=== PATIENT | female | born 1955 | race Caucasian/White ===

== ENCOUNTER 2018-02-18 08:41 | Day surgery (SDC) | payer MEDICAID ==
--- NOTE | 2018-02-18 10:06 | PCM.SURG1 ---
Surgeon's Initial Post Op Note - Surgeon's Notes Surgeon: Rj Faulkner MD Pet Handler: NONE Type of Anesthesia: Local Pre-Operative Diagnosis: Left thyroid nodule Operative Findings: 1.8 cm left thyroid nodule Post-Operative Diagnosis: Left thyroid nodule Operation Performed: US guided FNA Specimen/Specimens Removed: 25 g FNA x 5 passes Estimated Blood Loss: EBL {In ML}: 1 Blood Products Given: N/A Drains Used: No Drains Post-Op Condition: Good Date of Surgery/Procedure: 02/18/18 Time of Surgery/Procedure: 10:05
--- NOTE | 2018-02-18 10:07 | CP.SDSHP ---
Same Day Surgery H & P - History Proposed Procedure: US guided FNA of left thyroid nodule Pre-Op Diagnosis: Left thyroid nodule - Allergies Allergies: Allergies No Known Allergies Allergy (Unverified 06/09/14 09:38) - Physical Exam Mental Status: Alert & Oriented x3 Neuro: WNL Heart: WNL - Impression Impression: Pt with a 1.5 cm left thyroid nodule. Plan US guided FNA. Informed consent obtained. Pt. Evaluated Today:Candidate for Anesthesia & Procedure: No - Date & Time Date: 02/18/18 Time: 09:45 Short Stay Discharge - Short Stay Discharge Admitting Diagnosis/Reason for Visit: THYROID NODULE Disposition: HOME/ ROUTINE
[2018-02-18 10:08] VITALS: BMI 34.3
--- NOTE | 2018-02-18 10:42 | US ---
PROCEDURE: Date of Procedure: 02/18/2018 PROCEDURE: 1. Ultrasound guided FNA of left thyroid nodule, CPT 13717 2. Ultrasound guidance for FNA, 56590 Medications: 2cc 1% Lidocaine HISTORY: Enlarged left thyroid nodule. TECHNIQUE: Following informed consent and procedure time-out, a limited ultrasound patient's neck confirmed the presence of a 1.8 cm complex left thyroid nodule which is predominantly solid. After the patient's neck was prepped and draped in the usual sterile fashion, the skin was anesthetized with 1% lidocaine. Ultrasound-guided fine needle aspiration was then performed of the dominant left thyroid nodule. A total of 5 passes were made into the nodule with 25 gauge needle under ultrasound guidance. The FNA specimen was sent for routine pathology. Post biopsy ultrasound showed no hematoma. IMPRESSION: Ultrasound-guided FNA of the dominant left thyroid nodule.
== END 2018-02-18 11:40 | disposition home or self-care (01) ==
LOC: C.SPRAD 08:41
PROVIDERS: ATTEND Radiology Vascular & Interventional Radiology
DX: E04.1 Nontoxic single thyroid nodule (principal)

== ENCOUNTER 2018-12-23 14:04 | Outpatient (CLI) | payer MEDICAID | END 2018-12-23 14:05 | disposition home or self-care (01) | LOC: C.USIC 14:04 | DX: E04.2 Nontoxic multinodular goiter (principal) ==